=== PATIENT | male | born 1985 | race Caucasian/White ===

== ENCOUNTER 2020-12-15 16:52 | Inpatient (IN) ==
--- NOTE | 2020-12-15 17:54 | Emergency Department Note ---
History of Present Illness General Chief complaint: Illness Stated complaint: SEIZURE Time Seen by Provider: 12/15/20 17:41 History of Present Illness Maximum Pain Intensity: 0 35-year-old male presents to the ED from the [facility] by ambulance. The patient reportedly had a seizure that lasted for 2 or 3 minutes. The patient reportedly had a positive Covid test result 5 to 7 days ago. He does have a history of seizures. He states that his last one was a long time ago. He is currently taking Depakote. He denies any complaints at this time. He denies biting his tongue or having tongue pain. Denies any headaches. No chest pains or shortness of breath. Denies incontinence. Past Med/Surg History Social History Smoking Status: Never smoker Preferred Language: Portuguese Review of Systems A total of 10 systems reviewed and were otherwise negative Physical Exam Vital Signs Vital Signs - 24 hr 12/15/20 16:55 12/15/20 17:17 12/15/20 17:30 Temperature 36.5 C Temperature Source Oral Pulse Rate 102 H 100 H 98 H Pulse Rate from SpO2 Sensor 101 H 97 H Pulse Rhythm Regular Pulse Strength Normal Respiratory Rate 9 L 15 17 Respiratory Effort / Characteristics Non-Labored Spontaneous Respiratory Depth Normal Respiratory Pattern Regular Blood Pressure 111/71 111/71 115/78 Blood Pressure Mean 84 84 90 Blood Pressure Position Lying Pulse Oximetry 93 96 96 Oxygen Delivery Method Room Air Sepsis New/Unexplained Change in Mental Status N/A Sepsis Action Taken by Nursing No Action Required 12/15/20 17:50 12/15/20 18:00 12/15/20 18:30 Temperature Temperature Source Pulse Rate 102 H 94 H 88 Pulse Rate from SpO2 Sensor 93 H 87 Pulse Rhythm Regular Pulse Strength Respiratory Rate 9 L 20 16 Respiratory Effort / Characteristics Respiratory Depth Respiratory Pattern Blood Pressure 108/80 110/81 Blood Pressure Mean 89 90 Blood Pressure Position Pulse Oximetry 93 97 97 Oxygen Delivery Method Room Air Sepsis New/Unexplained Change in Mental Status Sepsis Action Taken by Nursing 12/15/20 19:00 12/15/20 19:30 12/15/20 20:00 Temperature Temperature Source Pulse Rate 91 H 92 H 91 H Pulse Rate from SpO2 Sensor 90 92 H 89 Pulse Rhythm Pulse Strength Respiratory Rate 14 16 14 Respiratory Effort / Characteristics Respiratory Depth Respiratory Pattern Blood Pressure 122/81 Blood Pressure Mean 94 Blood Pressure Position Pulse Oximetry 98 98 97 Oxygen Delivery Method Sepsis New/Unexplained Change in Mental Status Sepsis Action Taken by Nursing 12/15/20 20:30 Temperature Temperature Source Pulse Rate 89 Pulse Rate from SpO2 Sensor 90 Pulse Rhythm Pulse Strength Respiratory Rate 14 Respiratory Effort / Characteristics Respiratory Depth Respiratory Pattern Blood Pressure Blood Pressure Mean Blood Pressure Position Pulse Oximetry 97 Oxygen Delivery Method Sepsis New/Unexplained Change in Mental Status Sepsis Action Taken by Nursing CONSTITUTIONAL/VITAL SIGNS: Reviewed / noted above. GENERAL: Non-toxic in appearance. INTEGUMENTARY: Warm, dry, and [place]. HEAD: Normocephalic. EYES: without scleral icterus or trauma. ENT/OROPHARYNX: clear and moist. LYMPHADENOPATHY/NECK: Is supple without lymphadenopathy or meningismus. RESPIRATORY: Clear to auscultation bilaterally. No increased work of breathing. CARDIOVASCULAR: Regular rate and rhythm. GI/ABDOMEN: Soft and nontender. No organomegaly or pulsatile mass. EXTREMITIES: Warm and well perfused. BACK: No CVA tenderness. NEUROLOGICAL: Intact without focal deficits. PSYCHIATRIC: normal affect. MUSCULOSKELETAL: Normally developed with good muscle tone. TRIAGE NURSING DOCUMENTATION REVIEWED. Course Administered Medications Discontinued Medications Sodium Chloride (Nss) 500 mls @ 999 mls/hr IV .Q31M TRISTIAN Stop: 12/15/20 18:30 Last Infusion: 12/15/20 20:47 Dose: 0 mls/hr Documented by: [id number] Admin: 12/15/20 18:29 Dose: 999 mls/hr Documented by: [id number] Medical Decision Making Differential Diagnosis Differential includes acute coronary syndrome, myocardial infarction, CVA, TIA, anemia, infection, pneumonia, UTI, pyelonephritis, poor nutrition, dehydration, electrolyte disturbance,hypoglycemia. Medical Records Attestation: I reviewed the patient's medical records. Home Medications Current Medication List: was personally reviewed by me Laboratory Data Attestation: I reviewed the patient's lab results. Result diagrams: 12/15/20 18:35 12/15/20 18:35 Lab Results 12/15/20 12/15/20 12/15/20 Range/Units 18:35 18:35 18:35 WBC 8.73 (4.8-10.8) K/uL RBC 5.32 (4.7-6.1) M/uL Hgb 15.9 (14.0-18.0) g/dL Hct 45.6 (42-52) % MCV 85.7 (80-100) fL MCH 29.9 (25-34) pg MCHC 34.9 (32-36) g/dL RDW Std Deviation 44.6 (36.4-46.3) fL RDW Coeff of Jessica 14.3 (11.5-14.5) % Plt Count 368 (130-400) K/uL MPV 9.1 (7.4-10.4) fL Immature Gran % (Auto) 1.1 % Neut % (Auto) 73.4 % Lymph % (Auto) 16.0 % [place] % (Auto) 8.8 % Eos % (Auto) 0.6 % Baso % (Auto) 0.1 % Neut # (Auto) 6.40 (1.4-6.5) K/uL Lymph # (Auto) 1.40 (1.2-3.4) K/uL [place] # (Auto) 0.77 H (0.11-0.59) K/uL Eos # (Auto) 0.05 (0-0.5) K/uL Baso # (Auto) 0.01 (0-0.2) K/uL Immature Gran # (Auto) 0.10 H (0.00-0.02) K/uL Sodium 141 (136-145) mmol/L Potassium (3.5-5.1) mmol/L Chloride 111 H (98-107) mmol/L Carbon Dioxide 23 (21-32) mmol/L Anion Gap 7.0 (3-11) BUN 14 (7-18) mg/dl Creatinine 0.84 (0.6-1.4) mg/dl Est Cr Clr Drug Dosing 118.5 ml/min Est GFR ( Amer) 132.4 ml/min Est GFR (Non-Af Amer) 114.2 ml/min BUN/Creatinine Ratio 17.1 (10-20) Glucose 97 (70-99) mg/dl Calcium 9.4 (8.5-10.1) mg/dl Total Bilirubin 0.2 (0.2-1) mg/dl AST (15-37) U/L ALT 12 (12-78) U/L Alkaline Phosphatase 73 (45-117) U/L Total Creatine Kinase (39-308) U/L Total Protein 7.1 (6.4-8.2) gm/dl Albumin 3.3 L (3.4-5.0) gm/dl Globulin 3.8 (2.5-4.0) gm/dl Albumin/Globulin Ratio 0.9 (0.9-2) Valproic Acid 52 (50-100) mcg/ml Imaging Data Radiologist's Impression: Chest X-Ray 12/15/20 17:50 SINGLE VIEW CHEST CLINICAL HISTORY: Generalized weakness. FINDINGS: An AP, portable, upright chest radiograph is obtained. No prior studies are available for comparison at the time of dictation. The cardiomediastinal silhouette is unremarkable. The lungs and pleural spaces are clear. No pneumothorax is seen. The bony thorax is grossly intact. IMPRESSION: No active disease in the chest. ACT 112: Negative or not required by law. Electronically signed by: Reno Ga M.D. 12/15/2020 7:15 PM ECG Data Attestation: I personally reviewed and interpreted this ECG as follows: MDM Narrative Patient presents after a 2 to 3-minute tonic-clonic seizure that was reportedly witnessed by the patient's roommate at the [facility]. He was transported by ambulance. No EMS details were obtained by the nurse and the EMS was gone by the time I saw the patient. The patient denies any specific complaints. Does admit to having a seizure disorder but the last one was many years ago. He does take Depakote. He states that he has been taking his medications as prescribed. The patient CBC and chemistry panel was unremarkable. Chest x-ray did not show acute process. Depakote level was therapeutic. The patient was told the results of the test. He was given some IV fluids here. He is felt to be stable for discharge. He is seizure could be related to a breakthrough seizure related to recently having Covid. Impression & Plan Seizure Discharge Plan Visit Data Chief Complaint: Illness Stated Complaint: SEIZURE ED Provider: Dany Burden Discharge Problem: Seizure Patient Disposition: Home - Self-Care Discharge Instructions Activity Restrictions/Additional Instructions: Your Depakote level today was therapeutic. Your blood work otherwise looked normal. You likely had a breakthrough seizure related to your recent positive Covid diagnosis. Continue your medication as prescribed. Follow-up with your neurologist. Follow-up with your doctor for further care and evaluation in 1 week if symptoms persist. Return to the emergency department for worsening or new symptoms or any concerns. You have been examined and treated today on an emergency basis only. This is not a substitute for, or an effort to provide, complete comprehensive medical care. It is impossible to recognize and treat all injuries or illnesses in a single emergency department visit. It is therefore important that you follow up closely with your doctor. Call as soon as possible for an appointment. Forms Stand Alone Forms: [facility], [facility] Emergency Department, [facility] Visit Information Referrals Referrals: PCP,NO [Physician] -
[2020-12-15] MEDS ORDERED: SODIUM CHLORIDE 0.9% 500 ML IV SCH (18:00)
[2020-12-15 18:42] LABS: Basophils # (auto) 0.01 K/uL (0-0.2); Basophils % (auto) 0.1 %; Eosinophils # (auto) 0.05 K/uL (0-0.5); Eosinophils % (auto) 0.6 %; Hematocrit (blood only) 45.6 % (42-52); Hemoglobin 15.9 g/dL (14.0-18.0); Immature Granulocytes % (auto) 1.1 %; Mean Corpuscular Hemoglobin 29.9 pg (25-34); Mean Corpuscular Hgb Conc 34.9 g/dL (32-36); Mean Corpuscular Volume 85.7 fL (80-100); Mean Platelet Volume 9.1 fL (7.4-10.4); Monocytes # (auto) 0.77 K/uL (0.11-0.59); Monocytes % (auto) 8.8 %; Neutrophils % (auto) 73.4 %; Platelet Count 368 K/uL (130-400); RDW Coefficient of Variation 14.3 % (11.5-14.5); RDW Standard Deviation 44.6 fL (36.4-46.3); Red Blood Count 5.32 M/uL (4.7-6.1); White Blood Count 8.73 K/uL (4.8-10.8)
--- NOTE | 2020-12-15 19:16 | XRay Report ---
SINGLE VIEW CHEST CLINICAL HISTORY: Generalized weakness. FINDINGS: An AP, portable, upright chest radiograph is obtained. No prior studies are available for c omparison at the time of dictation. The cardiomediastinal silhouette is unremarkable. The lungs and pleural spaces are clear. No pneumothorax is seen. The bony thorax is grossly intact. IMPRESSION: No active disease in the chest. ACT 112: Negative or not required by law. Electronically signed by: Reno Ga M.D. 12/15/2020 7:15 PM
[2020-12-15 19:18] LABS: Albumin Globulin Ratio 0.9 (0.9-2); Albumin Level 3.3 gm/dl (3.4-5.0); BUN Creatinine Ratio 17.1 (10-20); Bilirubin,Total 0.2 mg/dl (0.2-1); Calcium 9.4 mg/dl (8.5-10.1); Creatinine Clr Calc Pharmacy 118.5 ml/min; Est GFR (African American) 132.4 ml/min; Est GFR (Non-African American) 114.2 ml/min; Globulin 3.8 gm/dl (2.5-4.0); Total Protein 7.1 gm/dl (6.4-8.2)
[2020-12-15] MEDS ORDERED: levETIRAcetam 1,000 MG in 0.9 % SODIUM CHLORIDE 100 ML IV STA (22:21)
[2020-12-15] MEDS ORDERED: LORazepam 1 MG/2 ML VIAL IV PRN (22:40)
[2020-12-15 23:05] LABS: Partial Thromboplastin Time 25.9 Seconds (21.0-31.0)
--- NOTE | 2020-12-16 00:19 | History & Physical Report ---
Date of Service December 16, 2020 Assessment & Plan (1) Acute hypoxemic respiratory failure: Plan: Noted after second breakthrough seizure last night COVID-19 illness, unable to obtain account of symptoms from patient at time of encounter schizophrenia/mood disorder, patient currently admitted at [facility] hypertension, stable, currently not on maintenance medications ongoing tobacco abuse Medical telemetry Supplemental O2 Baseline ABG Supportive measures for COVID-19 illness for now until ABG results noted Seizure precautions, Ativan as needed Continue AED regimen from [facility] Hold Haldol for now. Retrieve outpatient [facility] Neurology records (Dr. Rivera, contact #[phone]) Neurology consult Re: Breakthrough seizures Nicotine patch as needed DVT prophylaxis per Lovenox subcu Full code Patient guardian requesting update from providers. Mr. Caleb Hernandes, contact #[phone]. Text document was generated using [employer] voice recognition software. It may contain grammatical or spelling errors. Kindly contact undersigned for clarification of any documentation item in question. History of Present Illness Chief Complaint: Seizures Primary Care Provider: JENNIFER Man History obtained from patient, family, and records. Limited history from patient secondary to confusion. Medical history significant for schizophrenia, mood disorder, seizure disorder, hypertension, ongoing tobacco abuse. Patient has been admitted at the [facility] for schizophrenia/mood disorder since November 29, 2020. [facility] to fix patient's seizure medication regimen because outpatient providers from [place] 'messed up' patient's meds leading to a breakthrough seizure 3 months ago after years of good control as per patient's guardian. 2 more weeks of stay contemplated at the [facility] as per guardian. Last week, patient noted to have a positive Covid test 19. Patient unable to provide account of symptoms of illness. Witnessed generalized tonic-clonic seizures about 2 to 3 minutes at psychiatric facility last night. Patient brought to the ER for evaluation. Patient about to be discharged back to psychiatric facility when he had another breakthrough seizure lasting about 2 minutes.. Subsequent hypoxemia noted. IV Keppra administered at the ER. Patient 'does not know' if he has headache, chest pain, S OB, cough, abdominal pain symptoms. Medical History as above Surgical History : Could not be obtained Family History : Could not be obtained Personal/Social history : Ongoing tobacco abuse, no EtOH intake, lives with his guardian in [place] Allergies Allergy/AdvReac Type Severity Reaction Status Date / Time No Known Allergies Allergy Unverified 12/15/20 23:08 Home Medications Medication Instructions Recorded Confirmed Type Haloperidol 2.5 Mg 7.5 mg PO HS 12/15/20 History acetaminophen 325 mg tablet 650 mg PO Q4 PRN 12/15/20 12/15/20 History (Tylenol) clozapine 100 mg tablet 200 mg PO HS 12/15/20 12/15/20 History clozapine 25 mg tablet 150 mg PO QAM 12/15/20 12/15/20 History divalproex 250 mg tablet,delayed 250 mg PO QAM 12/15/20 12/15/20 History release (Depakote) divalproex 500 mg tablet,delayed 500 mg PO HS 12/15/20 12/15/20 History release (Depakote) docusate sodium 100 mg tablet 100 mg PO DAILY 12/15/20 12/15/20 History doxepin 25 mg capsule 25 mg PO HS 12/15/20 12/15/20 History haloperidol 5 mg tablet 10 mg PO Q6 PRN 12/15/20 12/15/20 History hydroxyzine pamoate 25 mg capsule 25 mg PO TID 12/15/20 12/15/20 History lorazepam 1 mg tablet (Ativan) 1 mg PO Q6 PRN 12/15/20 12/15/20 History magnesium hydroxide 400 mg/5 mL 30 ml PO DAILY PRN 12/15/20 12/15/20 History oral suspension (Milk of Magnesia) zonisamide 100 mg capsule 500 mg PO HS 12/15/20 12/15/20 History Past Med/Surg History Social History Smoking Status: Unknown if ever smoked Hx Alcohol Use: No Hx Substance Use: No Preferred Language: Iraqi Communication Ability: Effective Beliefs That Will Affect Care: None Current Living Situation: Other Current Living Situation Comment: Friend Feels Safe at Home: Yes Safety Concerns: Feels Safe At This Time Assistive Devices: None Review of Systems Review of Systems: Could not be reliably obtained Physical Exam Physical Exam: GENERAL: Comfortable, wane, lethargic, no respiratory distress SKIN: Normal color, warm HEENT: [place] palpebral conjunctivae, no ptosis, dry buccal mucosa, O2 mask in place NECK : Supple, no tenderness CHEST : Decreased breath sounds, no tenderness HEART : RRR, no obvious murmurs ABDOMEN: Some distention, nontender EXTREMITIES : No LE swelling/tenderness, no other conspicuous deformities noted NEUROLOGIC : Lethargic, no facial asymmetry, no other gross focality Results & Data Results & Data ([facility]) Vital Signs (Past 12 Hours) Vital Signs Temp Pulse Resp BP BP Pulse Ox 12/15/20 23:00 101 H 14 121/80 91 12/15/20 22:30 109 H 20 90 12/15/20 22:00 97 12/15/20 21:30 98 12/15/20 21:08 37 C 87 H 117/85 98 12/15/20 21:00 89 14 97 12/15/20 20:30 89 14 97 12/15/20 20:00 91 H 14 97 12/15/20 19:30 92 H 16 122/81 98 12/15/20 19:00 91 H 14 98 12/15/20 18:30 88 16 110/81 97 12/15/20 18:00 94 H 20 108/80 97 12/15/20 17:50 102 H 9 L 93 12/15/20 17:30 98 H 17 115/78 96 12/15/20 17:17 100 H 15 111/71 96 12/15/20 16:55 36.5 C 102 H 9 L 111/71 93 Laboratory Results Laboratory Results WBC 8.73 K/uL (4.8-10.8) 12/15/20 18:35 RBC 5.32 M/uL (4.7-6.1) 12/15/20 18:35 Hgb 15.9 g/dL (14.0-18.0) 12/15/20 18:35 Hct 45.6 % (42-52) 12/15/20 18:35 MCV 85.7 fL (80-100) 12/15/20 18:35 MCH 29.9 pg (25-34) 12/15/20 18:35 MCHC 34.9 g/dL (32-36) 12/15/20 18:35 RDW Std Deviation 44.6 fL (36.4-46.3) 12/15/20 18:35 RDW Coeff of Jessica 14.3 % (11.5-14.5) 12/15/20 18:35 Plt Count 368 K/uL (130-400) 12/15/20 18:35 MPV 9.1 fL (7.4-10.4) 12/15/20 18:35 Immature Gran % (Auto) 1.1 % 12/15/20 18:35 Neut % (Auto) 73.4 % 12/15/20 18:35 Lymph % (Auto) 16.0 % 12/15/20 18:35 [place] % (Auto) 8.8 % 12/15/20 18:35 Eos % (Auto) 0.6 % 12/15/20 18:35 Baso % (Auto) 0.1 % 12/15/20 18:35 Neut # (Auto) 6.40 K/uL (1.4-6.5) 12/15/20 18:35 Lymph # (Auto) 1.40 K/uL (1.2-3.4) 12/15/20 18:35 [place] # (Auto) 0.77 K/uL (0.11-0.59) H 12/15/20 18:35 Eos # (Auto) 0.05 K/uL (0-0.5) 12/15/20 18:35 Baso # (Auto) 0.01 K/uL (0-0.2) 12/15/20 18:35 Immature Gran # (Auto) 0.10 K/uL (0.00-0.02) H 12/15/20 18:35 APTT 25.9 Seconds (21.0-31.0) 12/15/20 18:36 PTT Ratio 1.0 12/15/20 18:36 Sodium 141 mmol/L (136-145) 12/15/20 18:35 Potassium mmol/L (3.5-5.1) 12/15/20 18:35 Chloride 111 mmol/L (98-107) H 12/15/20 18:35 Carbon Dioxide 23 mmol/L (21-32) 12/15/20 18:35 Anion Gap 7.0 (3-11) 12/15/20 18:35 BUN 14 mg/dl (7-18) 12/15/20 18:35 Creatinine 0.84 mg/dl (0.6-1.4) 12/15/20 18:35 Est Cr Clr Drug Dosing 118.5 ml/min 12/15/20 18:35 Est GFR ( Amer) 132.4 ml/min 12/15/20 18:35 Est GFR (Non-Af Amer) 114.2 ml/min 12/15/20 18:35 BUN/Creatinine Ratio 17.1 (10-20) 12/15/20 18:35 Glucose 97 mg/dl (70-99) 12/15/20 18:35 Calcium 9.4 mg/dl (8.5-10.1) 12/15/20 18:35 Total Bilirubin 0.2 mg/dl (0.2-1) 12/15/20 18:35 AST U/L (15-37) 12/15/20 18:35 ALT 12 U/L (12-78) 12/15/20 18:35 Alkaline Phosphatase 73 U/L (45-117) 12/15/20 18:35 Total Creatine Kinase U/L (39-308) 12/15/20 18:35 Total Protein 7.1 gm/dl (6.4-8.2) 12/15/20 18:35 Albumin 3.3 gm/dl (3.4-5.0) L 12/15/20 18:35 Globulin 3.8 gm/dl (2.5-4.0) 12/15/20 18:35 Albumin/Globulin Ratio 0.9 (0.9-2) 12/15/20 18:35 Valproic Acid 52 mcg/ml (50-100) 12/15/20 18:35 COVID-19 Eval Order Covid19 at [facility] 12/15/20 22:51 Diagnostic Findings Chest x-ray as per my interpretation atelectasis EKG as per my interpretation : Rate 105, sinus nocardia, normal axis, diffuse T wave flattening
[2020-12-16 00:24] LABS: Base Excess ABG -1.4 mEq/L (-9-1.8); HCO3 ABG 22 mmol/L (19-24); Oxygen Saturation ABG 99.7 % (90-95); PCO2 ABG 35 mmHg (35-46); PO2 ABG 257 mmHg (80-95); pH ABG 7.42 (7.35-7.45)
[2020-12-16 00:27] LABS: Allen Test Pos (Pos)
[2020-12-16 00:37] LABS: Potassium 3.9 mmol/L (3.5-5.1)
[2020-12-16 00:49] LABS: Troponin I < 0.015 ng/ml (0-0.045)
[2020-12-16] MEDS ORDERED: ZONISAMIDE 100 MG CAPSULE PO STA (01:17)
[2020-12-16] MEDS ORDERED: LACTATED RINGER'S 1,000 ML IV STA (02:14)
[2020-12-16] MEDS ORDERED: LEVALBUTEROL TARTRATE 15 GM HFA.AER.AD INH PRN (02:21)
[2020-12-16] MEDS ORDERED: ACETAMINOPHEN 325 MG TAB PO PRN ×2 (02:21)
[2020-12-16] MEDS ORDERED: FLUARIX QUADRIVALENT 0.5 ML SYR IM ONE (02:40)
[2020-12-16 06:35] LABS: Basophils # (auto) 0.01 K/uL (0-0.2); Basophils % (auto) 0.1 %; Eosinophils # (auto) 0.08 K/uL (0-0.5); Eosinophils % (auto) 1.1 %; Hematocrit (blood only) 42.2 % (42-52); Hemoglobin 14.7 g/dL (14.0-18.0); Immature Granulocytes # (auto) 0.07 K/uL (0.00-0.02); Immature Granulocytes % (auto) 0.9 %; Lymphocytes # (auto) 2.17 K/uL (1.2-3.4); Lymphocytes % (auto) 29.2 %; Mean Corpuscular Hemoglobin 29.6 pg (25-34); Mean Corpuscular Hgb Conc 34.8 g/dL (32-36); Mean Corpuscular Volume 84.9 fL (80-100); Mean Platelet Volume 9.1 fL (7.4-10.4); Monocytes # (auto) 0.96 K/uL (0.11-0.59); Monocytes % (auto) 12.9 %; Neutrophils # (auto) 4.15 K/uL (1.4-6.5); Neutrophils % (auto) 55.8 %; Platelet Count 392 K/uL (130-400); RDW Coefficient of Variation 14.3 % (11.5-14.5); RDW Standard Deviation 44.7 fL (36.4-46.3); Red Blood Count 4.97 M/uL (4.7-6.1); White Blood Count 7.44 K/uL (4.8-10.8)
--- NOTE | 2020-12-16 06:36 | CT Scan Report ---
CT head/brain wo con CLINICAL HISTORY: 35 years-old Male with sz. Acute seizure like activity TECHNIQUE: Multiple axial CT images of the head were obtained without contrast. A dose lowering tech nique was utilized adhering to the principles of ALARA. CT DOSE: 614.27 mGy.cm COMPARISON: None. FINDINGS: No acute intracranial hemorrhage, midline shift, intracranial mass, hydrocephalus, territorial ischem ia or abnormal extra-axial collection. The calvarium is intact. Mastoid air cells are clear. Minimal mucosal thickening the right frontal a nd maxillary sinuses. IMPRESSION: No acute intracranial abnormality. ACT 112: Negative or not required by law. The above report was generated using voice recognition software. It may contain grammatical, syntax o r spelling errors. Electronically signed by: Kamari Jarrett M.D. 12/16/2020 6:34 AM
[2020-12-16 06:54] LABS: BUN Creatinine Ratio 16.4 (10-20); Creatinine Clr Calc Pharmacy 132.7 ml/min; Est GFR (African American) 135.8 ml/min; Est GFR (Non-African American) 117.2 ml/min; Potassium 3.8 mmol/L (3.5-5.1)
[2020-12-16 06:57] LABS: Albumin Globulin Ratio 0.8 (0.9-2); Bilirubin,Total 0.4 mg/dl (0.2-1); Globulin 3.6 gm/dl (2.5-4.0); Total Protein 6.6 gm/dl (6.4-8.2)
--- NOTE | 2020-12-16 07:43 | XRay Report ---
XR chest 1V portable HISTORY: Hypoxia. Seizure. COMPARISON: Chest 12/15/2020. FINDINGS: No pneumothorax. No pleural effusions. The heart is normal in size. There are low lung volu mes. Left basilar linear densities are noted. The right lung is clear. No evidence for pulmonary juanita a. IMPRESSION: A few left basilar linear densities which favor subsegmental atelectasis. A pneumonia could also have a similar appearance in the appropriate clinical setting. ACT 112: Negative or not required by law. Electronically signed by: Ivan Mccartney M.D. 12/16/2020 7:42 AM
[2020-12-16] MEDS ORDERED: DIVALPROEX DELAY RELEASE 250 MG TABEC PO SCH (09:00)
[2020-12-16] MEDS: DIVALPROEX DELAY RELEASE 500 MG TAB PO SCH ×2 (11:07→20:21)
[2020-12-16] MEDS: ENOXAPARIN INJ 30 MG/0.3 ML SYR SQ SCH (11:07)
--- NOTE | 2020-12-16 14:09 | Electrocardiogram Report ---
Test Reason : Blood Pressure : / mmHG Vent. Rate : 101 BPM Atrial Rate : 101 BPM P-R Int : 120 ms QRS Dur : 072 ms QT Int : 334 ms P-R-T Axes : 012 052 062 degrees QTc Int : 433 ms Sinus tachycardia Nonspecific T wave abnormality Abnormal ECG No previous ECGs available Confirmed by Grayson Khan ([id number]) on 12/16/2020 2:09:31 PM Referred By: Karo Wood Confirmed By:Grayson Khan
--- NOTE | 2020-12-16 15:39 | Hospitalist Progress Note ---
Date of Service December 16, 2020 Assessment & Plan (1) Acute hypoxemic respiratory failure: Plan: Breakthrough Seizure H/O seizure disorder CT Head:No acute intracranial abnormality Continue Zonisamide Increased Depakote to 500MG BID Continue Seizure precautions Appreciate Neurology Input Follow with [facility] Neurology records (Dr. Rivera) as outpatient COVID-19 illness Transient Hypoxia in setting of breakthrough seizure CXR:A few left basilar linear densities which favor subsegmental atelectasis. A pneumonia could also have a similar appearance in the appropriate clinical setting. 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 DVT Px: Lovenox SQ Code Status Full code Admission and Anticipated Discharge Date Admission Date: December 16, 2020 Subjective Patient is seen and examined bedside States having headache and feels drowsy Also reported mild abdominal discomfort Denies any chest pain, shortness of breath, dizziness, nausea Review of Systems Review of Systems: All systems reviewed & are unremarkable except as noted in Subjective Physical Exam Physical Exam: Physical Exam: Vitals signs as noted above General Appearance:Thin, frail, no apparent distress Head: normocephalic, Atraumatic Eyes: normal inspection, EOMI Neck: supple, Trachea midline Respiratory/Chest: Normal breath sounds, CTA Cardiovascular: S1, S2, No murmur Abdomen/GI:Soft, Non tender, Bowel sounds present Extremities/Musculoskeletal:normal inspection, no edema Neurologic/Psych:Alert, awake, grossly no focal neurological deficits Skin: normal color, warm Results & Data Results & Data ([facility]) Vital Signs (Past 12 Hours) Vital Signs Temp Pulse Resp BP BP Pulse Ox 12/16/20 11:14 36.9 C 93 H 18 105/67 100 12/16/20 06:50 36.5 C 84 20 123/75 98 12/16/20 04:05 36.8 C 91 H 17 105/68 95 Laboratory Results Short CBC 12/15/20 12/16/20 Range/Units 18:35 05:54 WBC 8.73 7.44 (4.8-10.8) K/uL Hgb 15.9 14.7 (14.0-18.0) g/dL Hct 45.6 42.2 (42-52) % Plt Count 368 392 (130-400) K/uL BMP 12/15/20 12/16/20 12/16/20 18:35 00:10 05:54 Sodium 141 141 Potassium 3.9 3.8 Chloride 111 H 110 H Carbon Dioxide 23 25 BUN 14 13 Creatinine 0.84 0.79 Glucose 97 97 Calcium 9.4 9.0 Cardiac Enzymes 12/15/20 12/16/20 Range/Units 18:35 00:10 Total Creatine Kinase (39-308) U/L Troponin I < 0.015 (0-0.045) ng/ml Liver Function 12/15/20 12/16/20 Range/Units 18:35 05:54 Total Bilirubin 0.2 0.4 (0.2-1) mg/dl AST 4 L (15-37) U/L ALT 12 11 L (12-78) U/L Alkaline Phosphatase 73 67 (45-117) U/L Albumin 3.3 L 3.0 L (3.4-5.0) gm/dl
--- NOTE | 2020-12-16 16:18 | Electroencephalogram ---
EEG Procedure Note Date of Service December 16, 2020 Start / End Times Start Time: 1217 End Time: 1237 Referring Physician Jeovany Mendez MD History Breakthrough seizure x2 with history of seizures in the past currently managed with Depakote and Zonegran but with marginal Depakote level of 51 Home Medication List Medication Instructions Recorded Confirmed Type Haloperidol 2.5 Mg 7.5 mg PO HS 12/15/20 History acetaminophen 325 mg tablet 650 mg PO Q4 PRN 12/15/20 12/15/20 History (Tylenol) clozapine 100 mg tablet 200 mg PO HS 12/15/20 12/15/20 History clozapine 25 mg tablet 150 mg PO QAM 12/15/20 12/15/20 History divalproex 250 mg tablet,delayed 250 mg PO QAM 12/15/20 12/15/20 History release (Depakote) divalproex 500 mg tablet,delayed 500 mg PO HS 12/15/20 12/15/20 History release (Depakote) docusate sodium 100 mg tablet 100 mg PO DAILY 12/15/20 12/15/20 History doxepin 25 mg capsule 25 mg PO HS 12/15/20 12/15/20 History haloperidol 5 mg tablet 10 mg PO Q6 PRN 12/15/20 12/15/20 History hydroxyzine pamoate 25 mg capsule 25 mg PO TID 12/15/20 12/15/20 History lorazepam 1 mg tablet (Ativan) 1 mg PO Q6 PRN 12/15/20 12/15/20 History magnesium hydroxide 400 mg/5 mL 30 ml PO DAILY PRN 12/15/20 12/15/20 History oral suspension (Milk of Magnesia) zonisamide 100 mg capsule 500 mg PO HS 12/15/20 12/15/20 History Inpatient Medication List Divalproex Sodium (Divalproex Delay Release 500 Mg Tab) 500 mg PO BID [facility] Stop: 01/15/21 09:29 Last Admin: 12/16/20 11:07 Dose: 500 mg Documented by: [id number] Enoxaparin Sodium (Enoxaparin Inj 30 Mg/0.3 Ml Syr) 30 mg SQ QAM [facility] Stop: 01/15/21 08:59 Last Admin: 12/16/20 11:07 Dose: 30 mg Documented by: [id number] Discontinued Medications Divalproex Sodium (Divalproex Delay Release 250 Mg Tabec) 250 mg PO QAM [facility] Stop: 01/15/21 08:59 Last Admin: 12/16/20 09:29 Dose: Not Given Documented by: [id number] Sodium Chloride (Nss) 500 mls @ 999 mls/hr IV .Q31M [facility] Stop: 12/15/20 18:30 Last Infusion: 12/15/20 20:47 Dose: 0 mls/hr Documented by: [id number] Admin: 12/15/20 18:29 Dose: 999 mls/hr Documented by: [id number] Levetiracetam 1,000 mg/ Sodium (Chloride) 110 mls @ 440 mls/hr IV NOW [facility] Stop: 12/15/20 22:35 Last Infusion: 12/16/20 01:06 Dose: 0 mls/hr Documented by: [id number] Admin: 12/15/20 23:00 Dose: 440 mls/hr Documented by: [id number] Lactated Ringer's (Lr) 1,000 mls @ 80 mls/hr IV .[id number] [facility] Stop: 12/16/20 14:43 Last Infusion: 12/16/20 15:39 Dose: 0 mls/hr Documented by: [id number] Admin: 12/16/20 02:57 Dose: 80 mls/hr Documented by: [id number] Non-Formulary Medication (Zonisamide) 500 mg PO HS [facility] Stop: 01/15/21 00:24 Last Admin: 12/16/20 02:35 Dose: Not Given Documented by: [id number] Zonisamide (Zonisamide 100 Mg Capsule) 500 mg PO ONE [facility] Stop: 12/16/20 01:18 Last Admin: 12/16/20 02:52 Dose: 500 mg Documented by: [id number] Description This is a 21 electrode EEG with a single channel dedicated to limited EKG. The electrodes were placed in accordance with the International 10-20 system. This EEG was done as a bedside recording but was of only 20 minutes duration and a lot of the recording was hampered by muscle and movement artifacts and agitation but several minutes of the recording were interpretable and revealed evidence for a background rhythm in the alpha range of about 9 Hz maximum frequency, a slightly increased amount of slower frequency theta activity over the central regions but in a symmetrical fashion and a normal amount of alpha rhythm bifrontally. Photic stimulation could not be performed in drowsiness and light sleep were not seen No ongoing or potentially epileptogenic patterns were noted Interpretation Limited EEG but demonstrating at most evidence for mild nonspecific encephalopathy characterized by slightly increased amounts of slower activity but with preservation of the normal background alpha rhythm and revealing no evidence for potentially epileptogenic discharges or ongoing nonconvulsive status epilepticus Clinical Correlation See above nonspecific mild generalized slowing possibly post ictal without evidence for ongoing potentially epileptogenic or nonconvulsive seizure activity and without evidence for lateralizing features Jeovany Mendez MD
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
--- NOTE | 2020-12-16 16:50 | Communication Note ---
Date of Service: December 16, 2020 35 yo male with psychosis, CoVID +, seizure disorder--admit medically on transfer from the [facility]. Awaiting additional records. Liaison reports patient was not yet able to engage with our team. Ammonia level is mildly elevated. Will need to confirm dosing (?recent titration) of Clozaril given seizure risk with this compared to other antipsychotics. Please hold for excessive sedation or difficulty swallowing. Full consult to be completed within 24 hrs.
[2020-12-16] MEDS: PROMETHAZINE HCL 6.25 MG in SODIUM CHLORIDE 0.9% 50 ML IV PRN (17:31)
[2020-12-16] MEDS: haloperidoL 5 MG TAB PO PRN (17:55)
[2020-12-16] MEDS: cloZAPine 100 MG TAB PO SCH (20:21)
[2020-12-16] MEDS ORDERED: DIVALPROEX DELAY RELEASE 500 MG TAB PO SCH (21:00)
[2020-12-16] MEDS: ZONISAMIDE 100 MG CAPSULE PO SCH (21:10)
[2020-12-16] MEDS: LORazepam 1 MG TAB PO PRN (21:10)
[2020-12-17] MEDS: ENOXAPARIN INJ 30 MG/0.3 ML SYR SQ SCH (08:49)
[2020-12-17] MEDS: DIVALPROEX DELAY RELEASE 500 MG TAB PO SCH ×2 (08:49→21:33)
[2020-12-17 08:52] LABS: Hematocrit (blood only) 45.3 % (42-52); Hemoglobin 15.7 g/dL (14.0-18.0); Mean Corpuscular Hemoglobin 29.3 pg (25-34); Mean Corpuscular Hgb Conc 34.7 g/dL (32-36); Mean Corpuscular Volume 84.7 fL (80-100); Mean Platelet Volume 9.4 fL (7.4-10.4); Platelet Count 392 K/uL (130-400); RDW Coefficient of Variation 14.4 % (11.5-14.5); RDW Standard Deviation 44.6 fL (36.4-46.3); Red Blood Count 5.35 M/uL (4.7-6.1); White Blood Count 5.99 K/uL (4.8-10.8)
[2020-12-17 09:13] LABS: BUN Creatinine Ratio 11.5 (10-20); Calcium 9.5 mg/dl (8.5-10.1); Creatinine Clr Calc Pharmacy 109.6 ml/min; Est GFR (Non-African American) 102.7 ml/min; Magnesium 2.5 mg/dl (1.8-2.4); Potassium 3.9 mmol/L (3.5-5.1)
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
[2020-12-17] MEDS ORDERED: SODIUM CHLORIDE 0.9% 1000ML 1,000 ML IV ONE (10:04)
[2020-12-17] MEDS: LORazepam 1 MG TAB PO PRN ×2 (12:48→21:34)
[2020-12-17] MEDS: haloperidoL 5 MG TAB PO PRN (12:49)
[2020-12-17] MEDS ORDERED: BENZTROPINE MESYLATE 1 MG TAB PO PRN (14:24)
--- NOTE | 2020-12-17 15:04 | Communication Note ---
Date of Service: December 17, 2020 I have reviewed Hiram's laboratory studies and note that he has a mild elevation of the ammonia which may or may not reflect his Depakote and probably needs followed periodically. Without knowing his prior neurologic history I cannot state that this is not a chronic problem but it has nothing to do with his mental status is a titer is low Is repeat Depakote level is now in the therapeutic range at 67 and I would simply continue 500 mg twice a day along with his Zonegran at 500 mg a day and depending on how he is doing psychiatrically I think he probably could be transferred back to the [facility] but this is going to be totally up to the psychiatry service If [facility] he probably ought to have his Depakote level and ammonia level drawn on a weekly basis His neurologic care should be seen by the neurologist in the [place] area who has been providing it but again the identity of this individual has not been revealed Right now neurology is going to sign off but will be willing to reassess him should things change in the future Jeovany Mendez MD
[2020-12-17] MEDS: haloperidoL 5 MG TAB PO SCH ×2 (15:47→21:34)
--- NOTE | 2020-12-17 19:06 | Hospitalist Progress Note ---
Date of Service December 17, 2020 Assessment & Plan (1) Acute hypoxemic respiratory failure: Plan: Breakthrough Seizure H/O seizure disorder CT Head:No acute intracranial abnormality Continue Zonisamide Increased Depakote to 500MG BID Continue Seizure precautions Appreciate Neurology Input Follow with [facility] Neurology records (Dr. Rivera) as outpatient Needs Depakote level and ammonia level drawn on a weekly basis upon discharge as per Neurology COVID-19 illness Transient Hypoxia in setting of breakthrough seizure CXR:A few left basilar linear densities which favor subsegmental atelectasis. A pneumonia could also have a similar appearance in the appropriate clinical setting. Currently saturating well on room air Currently does not require treatment for Covid infection Denies cough, shortness of breath Schizophrenia/mood disorder Presented from [facility] Appreciate Psychiatry Input Reports suicidal, homicidal thoughts Sitter at bedside Suicidal precautions Started on haloperidol as per Psych Hypertension BP relatively low Currently not on meds Monitor Ongoing tobacco abuse Hat Blocker to quit smoking DVT Px: Lovenox SQ Code Status Full code Admission and Anticipated Discharge Date Admission Date: December 16, 2020 Subjective Patient is seen and examined bedside States having hallucinations Also reports suicidal and homicidal thoughts Abdominal discomfort resolved Denies any chest pain, shortness of breath, dizziness, nausea Review of Systems Review of Systems: All systems reviewed & are unremarkable except as noted in Subjective Physical Exam Physical Exam: Physical Exam: Vitals signs as noted above General Appearance:Thin, frail, no apparent distress Head: normocephalic, Atraumatic Eyes: normal inspection, EOMI Neck: supple, Trachea midline Respiratory/Chest: Normal breath sounds, CTA Cardiovascular: S1, S2, No murmur Abdomen/GI:Soft, Non tender, Bowel sounds present Extremities/Musculoskeletal:normal inspection, no edema Neurologic/Psych:Alert, awake, grossly no focal neurological deficits Skin: normal color, warm Results & Data Results & Data ([facility] Vital Signs (Past 12 Hours) Vital Signs Temp Pulse Pulse Resp BP Pulse Ox 12/17/20 18:00 123 H 12/17/20 15:17 36.5 C 106 H 19 131/87 99 12/17/20 11:57 36.5 C 93 H 18 110/69 100 12/17/20 08:05 36.5 C 73 20 90/60 L 99 Laboratory Results Short CBC 12/17/20 Range/Units 07:30 WBC 5.99 (4.8-10.8) K/uL Hgb 15.7 (14.0-18.0) g/dL Hct 45.3 (42-52) % Plt Count 392 (130-400) K/uL [facility] 12/17/20 07:30 Sodium 144 Potassium 3.9 Chloride 112 H Carbon Dioxide 24 BUN 11 Creatinine 0.96 Glucose 76 Calcium 9.5
[2020-12-17] MEDS: ZONISAMIDE 100 MG CAPSULE PO SCH (21:32)
[2020-12-17] MEDS: cloZAPine 100 MG TAB PO SCH (21:33)
[2020-12-18] MEDS: haloperidoL 5 MG TAB PO SCH ×2 (09:29→20:23)
[2020-12-18] MEDS: ENOXAPARIN INJ 30 MG/0.3 ML SYR SQ SCH (09:29)
[2020-12-18] MEDS: DIVALPROEX DELAY RELEASE 500 MG TAB PO SCH ×2 (09:30→20:24)
[2020-12-18 09:50] LABS: Hematocrit (blood only) 43.5 % (42-52); Mean Corpuscular Hemoglobin 29.8 pg (25-34); Mean Corpuscular Hgb Conc 34.5 g/dL (32-36); Mean Corpuscular Volume 86.3 fL (80-100); Mean Platelet Volume 9.1 fL (7.4-10.4); Platelet Count 351 K/uL (130-400); RDW Coefficient of Variation 14.6 % (11.5-14.5); RDW Standard Deviation 45.7 fL (36.4-46.3); Red Blood Count 5.04 M/uL (4.7-6.1); White Blood Count 5.88 K/uL (4.8-10.8)
[2020-12-18 10:12] LABS: Creatinine Clr Calc Pharmacy 123.1 ml/min; Est GFR (African American) 131.1 ml/min; Est GFR (Non-African American) 113.1 ml/min; Potassium 3.7 mmol/L (3.5-5.1)
--- NOTE | 2020-12-18 12:42 | Electrocardiogram Report ---
Test Reason : Blood Pressure : / mmHG Vent. Rate : 092 BPM Atrial Rate : 092 BPM P-R Int : 128 ms QRS Dur : 076 ms QT Int : 364 ms P-R-T Axes : 046 091 066 degrees QTc Int : 450 ms Normal sinus rhythm Rightward axis Nonspecific T wave abnormality Abnormal ECG When compared with ECG of 15-DEC-2020 17:08, No significant change was found Confirmed by Grayson Khan ([id number]) on 12/18/2020 12:42:19 PM Referred By: Karo Wood Confirmed By:Grayson Khan
--- NOTE | 2020-12-18 13:34 | Psychiatric Progress Note ---
Date of Service December 18, 2020 Impression / Recommendations Impression 35 yo male with chronic psychosis admit COVID + after a seizure at the [facility]. Past med trials largely unavaialable, hx of Invega, some response to prn Haldol. (1) Schizophrenia: (2) Acute hypoxemic respiratory failure: (3) Seizure: 12/18/20: reviewed records from [facility], was receiving higher total daily dose of clozapine there (including am dose). Continue current Haldol and Clozaril doses as written as Haldol effective and desirable to minimize clozaril dose due to acute seizures. Patient to return to [facility] to complete goals of inpatient hospitalization when medically cleared. Patient will remain a voluntary. Can d/c 1-on-1 today as denies SI and no CAH. 12/17/20: staff instructed re: 1-on-1 and that is symptoms worsen to place on safety tray will add standing order for Haldol and give 2 additional doses of 5 mg today (now and hx) Cogentin prn EPS I will not titrate clozaril as timeline in relationship to his seizures has not been established. Patient aware that theoretically any antipsychotic can alter seizure threshold but currently medically necessary Risk Factors Assessment Do You Have Access To A Gun?: No Interval History Identifying Information 35 yo male with schizophrenia was a 201 admission to the [facility] prior to having a seizure and transport to [facility] for treatment, COVID + Chief Complaint "[]". Review of Systems Notes patient denies cough, N/V, GARCIA, muscle stiffness. Telehealth Telehealth Options: Telephone only For the duration of the visit, provider was performing the assessment from: The same facility as the patient After establishing a telemedicine visit, patient was: Patient was verified with two unique identifiers, Patient/authorized rep acknowledged consent and understanding and Gave permission to continue telehealth session Total Time Spent (minutes): 15 Subjective Subjective Patient was seen & assessed and interval progress reviewed with liaison and Dr. Hanna. Patient was sedated earlier this am (probably related to prn Haldol/increase yesterday). The patient reports he is feeling well today with total resolution of his hallucinations. He contracts for safety in the hospital. He denies any SI/HI. Physical Exam Psychiatric patient is alert and cooperative. much less anxious than yesterday. He is concrete but organized in his thought processes and does not express any delusions. He continues to deny SI/HI/gonzalez. Vital Signs (Past 24 Hours) Last Vital Signs Temp 36.8 C 12/18/20 11:48 Pulse 98 H 12/18/20 11:48 Resp 16 12/18/20 11:48 BP 98/64 L 12/18/20 11:48 Pulse Ox 97 12/18/20 11:48 Results & Data ([facility]) Laboratory Results Laboratory Results - last 24 hr 12/18/20 12/18/20 09:26 09:26 WBC 5.88 RBC 5.04 Hgb 15.0 Hct 43.5 MCV 86.3 MCH 29.8 MCHC 34.5 RDW Std Deviation 45.7 RDW Coeff of Jessica 14.6 H Plt Count 351 MPV 9.1 Sodium 146 H Potassium 3.7 Chloride 114 H Carbon Dioxide 25 Anion Gap 7.0 BUN 9 Creatinine 0.86 Est Cr Clr Drug Dosing 123.1 Est GFR ( Amer) 131.1 Est GFR (Non-Af Amer) 113.1 BUN/Creatinine Ratio 11.0 Glucose 90 Calcium 9.0 Current Inpatient Medications Current Inpatient Medications: Current Inpatient Medications Acetaminophen (Acetaminophen 325 Mg Tab) 650 mg PO Q4H PRN PRN Reason: Pain or Fever Stop: 01/15/21 02:20 Last Admin: 12/16/20 20:20 Dose: 650 mg Documented by: Benztropine Mesylate (Benztropine Mesylate 1 Mg Tab) 1 mg PO Q6 PRN PRN Reason: Muscle Spasm Stop: 01/16/21 14:23 Clozapine (Clozapine 100 Mg Tab) 200 mg PO HS [facility] Stop: 01/15/21 20:59 Last Admin: 12/17/20 21:33 Dose: 200 mg Documented by: Divalproex Sodium (Divalproex Delay Release 500 Mg Tab) 500 mg PO BID [facility] Stop: 01/15/21 09:29 Last Admin: 12/18/20 09:30 Dose: 500 mg Documented by: Enoxaparin Sodium (Enoxaparin Inj 30 Mg/0.3 Ml Syr) 30 mg SQ QAM [facility] Stop: 01/15/21 08:59 Last Admin: 12/18/20 09:29 Dose: 30 mg Documented by: Haloperidol (Haloperidol 5 Mg Tab) 5 mg PO Q6 PRN PRN Reason: Anxiety/Agitation Stop: 01/15/21 17:22 Last Admin: 12/17/20 12:49 Dose: 5 mg Documented by: Haloperidol (Haloperidol 5 Mg Tab) 5 mg PO BID [facility] Stop: 01/16/21 14:24 Last Admin: 12/18/20 09:29 Dose: Not Given Documented by: Lorazepam (Ativan) 1 mg in 2 mls @ 0.5 mls/min IV Q10M PRN PRN Reason: seizures Stop: 01/14/21 22:39 Promethazine HCl 6.25 mg/ (Sodium Chloride) 50.25 mls @ 201 mls/hr IV Q6H PRN PRN Reason: Nausea And Vomiting Stop: 01/15/21 02:20 Last Infusion: 12/16/20 17:46 Dose: Infused Documented by: Levalbuterol HCl (Levalbuterol Tartrate 15 Gm Hfa.Aer.Ad) 2 puffs INH Q4H PRN PRN Reason: sob/wheeze Stop: 01/15/21 02:20 Lorazepam (Lorazepam 1 Mg Tab) 1 mg PO Q6H PRN PRN Reason: Anxiety Stop: 01/15/21 02:48 Last Admin: 12/17/20 21:34 Dose: 1 mg Documented by: Zonisamide (Zonisamide 100 Mg Capsule) 500 mg PO [facility] Stop: 01/15/21 20:59 Last Admin: 12/17/20 21:32 Dose: 500 mg Documented by:
--- NOTE | 2020-12-18 16:35 | Hospitalist Progress Note ---
Date of Service December 18, 2020 Assessment & Plan (1) Seizure: Plan: Recent psychiatric inpatient admission to the [facility] where his clozapine was increased. Possibly the cause of his breakthrough seizure. This has been decreased and he has been evaluated by neurology. He was initially loaded with Keppra in the ER but this was stopped so to avoid additional agitation. This was stopped and depakote was increased to 500mg BID. Cont home zonisamide without changes. Follow with [facility] Neurology records (Dr. Rivera) as outpatient Needs Depakote level and ammonia level drawn on a weekly basis upon discharge Currently doing well and appears stable on current therapy. (2) Schizophrenia: Plan: Recently inpatient at the [facility]. Per psychiatry use clozapine has been decreased. Hallucinations denies are not an issue at this time and psychiatry feels better is no concern or threat of suicide or homicidal ideations. Wound the wound monitoring has been discontinued. Patient appears in good spirits. He will continue on Haldol scheduled and as needed as needed for now with adjustments per psychiatry. (3) COVID-19: Plan: No symptoms and patient is not hypoxic. Not requiring treatment at this time. Transient hypoxia on day of admission, however, this resolved and he has been doing well since then. Will remain on respiratory isolation until 12/21, Wednesday morning. At this time he can come off respiratory isolation and transition back to [facility]. This was discussed with Dr. Sarmiento from psychiatry. (4) Tobacco use disorder: Plan: Not currently on nicotine replacement. Counseled to quit. (5) DVT prophylaxis: Plan: Lovenox Full Code Dispo-to med/surg [facility] Hospital[facility] Admission and Anticipated Discharge Date Admission Date: December 16, 2020 Subjective 35-year-old schizophrenic male presented to the ER with breakthrough seizures during recent inpatient psychiatric admission at the [facility]. Multiple medication adjustments. Patient also Covid positive but on room air. Denies any symptoms at this time including no pain, cough, fevers, chills, diarrhea. He is tolerating p.o. He feels well on his recent medication changes. No breakthrough seizures since he presented in the ER. Review of Systems Review of Systems: At least ten systems were reviewed and negative except as indicated in HPI above. Physical Exam Physical Exam: CONSTITUTIONAL: WNWD, vitals as above, generally well- appearing, NAD EYES: normal conjunctivae, no scleral icterus ENT: external ear and nose normal, MMM NECK: trachea midline RESPIRATORY: clear to auscultation bilaterally, no crackles, rales or wheezes, normal respiratory effort CARDIOVASCULAR: regular rate and rhythm, S1 and 2 heard without murmurs, gallops or rubs, no JVD, no peripheral edema CHEST: inspection of chest was normal (+pacemaker, +port) GASTROINTESTINAL: soft, nontender, ND, upon palpation patient states "I don't like to be touched"-exam stopped. MUSCULOSKELETAL: moves all extremities with ease, head is normocephalic and atraumatic SKIN: warm and dry NEUROLOGIC: CN 2-12 grossly intact, normal cognition, normal speech, no tremor PSYCHIATRIC: alert cooperative and oriented to person, place and time. Results & Data Results & Data ([facility]) Vital Signs (Past 12 Hours) Vital Signs Temp Pulse Pulse Pulse Resp BP Pulse Ox 12/18/20 16:05 37.0 C 108 H 24 109/72 98 12/18/20 11:48 36.8 C 98 H 16 98/64 L 97 12/18/20 08:30 90 12/18/20 07:51 36.6 C 90 20 101/67 97 Laboratory Results Short CBC 12/18/20 Range/Units 09:26 WBC 5.88 (4.8-10.8) K/uL Hgb 15.0 (14.0-18.0) g/dL Hct 43.5 (42-52) % Plt Count 351 (130-400) K/uL BMP 12/18/20 09:26 Sodium 146 H Potassium 3.7 Chloride 114 H Carbon Dioxide 25 BUN 9 Creatinine 0.86 Glucose 90 Calcium 9.0 Medications Administered Current Inpatient Medications Acetaminophen (Acetaminophen 325 Mg Tab) 650 mg PO Q4H PRN PRN Reason: Pain or Fever Stop: 01/15/21 02:20 Last Admin: 12/16/20 20:20 Dose: 650 mg Documented by: Benztropine Mesylate (Benztropine Mesylate 1 Mg Tab) 1 mg PO Q6 PRN PRN Reason: Muscle Spasm Stop: 01/16/21 14:23 Clozapine (Clozapine 100 Mg Tab) 200 mg PO HS [facility] Stop: 01/15/21 20:59 Last Admin: 12/17/20 21:33 Dose: 200 mg Documented by: Divalproex Sodium (Divalproex Delay Release 500 Mg Tab) 500 mg PO BID [facility] Stop: 01/15/21 09:29 Last Admin: 12/18/20 09:30 Dose: 500 mg Documented by: Enoxaparin Sodium (Enoxaparin Inj 30 Mg/0.3 Ml Syr) 30 mg SQ QAM [facility] Stop: 01/15/21 08:59 Last Admin: 12/18/20 09:29 Dose: 30 mg Documented by: Haloperidol (Haloperidol 5 Mg Tab) 5 mg PO Q6 PRN PRN Reason: Anxiety/Agitation Stop: 01/15/21 17:22 Last Admin: 12/17/20 12:49 Dose: 5 mg Documented by: Haloperidol (Haloperidol 5 Mg Tab) 5 mg PO BID [facility] Stop: 01/16/21 14:24 Last Admin: 12/18/20 09:29 Dose: Not Given Documented by: Lorazepam (Ativan) 1 mg in 2 mls @ 0.5 mls/min IV Q10M PRN PRN Reason: seizures Stop: 01/14/21 22:39 Promethazine HCl 6.25 mg/ (Sodium Chloride) 50.25 mls @ 201 mls/hr IV Q6H PRN PRN Reason: Nausea And Vomiting Stop: 01/15/21 02:20 Last Infusion: 12/16/20 17:46 Dose: Infused Documented by: Levalbuterol HCl (Levalbuterol Tartrate 15 Gm Hfa.Aer.Ad) 2 puffs INH Q4H PRN PRN Reason: sob/wheeze Stop: 01/15/21 02:20 Lorazepam (Lorazepam 1 Mg Tab) 1 mg PO Q6H PRN PRN Reason: Anxiety Stop: 01/15/21 02:48 Last Admin: 12/17/20 21:34 Dose: 1 mg Documented by: Zonisamide (Zonisamide 100 Mg Capsule) 500 mg PO HS [facility] Stop: 01/15/21 20:59 Last Admin: 12/17/20 21:32 Dose: 500 mg Documented by:
[2020-12-18] MEDS: cloZAPine 100 MG TAB PO SCH (20:23)
[2020-12-18] MEDS: ZONISAMIDE 100 MG CAPSULE PO SCH (20:24)
--- NOTE | 2020-12-19 08:58 | Communication Note ---
Date of Service: December I have reviewed the current chart progress notes from psychiatry and internal medicine at this point appears the patient is stable hallucinations or better controlled on the current dose of Depakote in conjunction. He does have a modest elevation of ammonia which needs to be monitored. His neurologist may wish to change anticonvulsants at this becomes an issue or alternatively may want to simply place him on some lactulose if this pattern persists Plan is to do weekly Depakote and ammonia levels continue his current medications and transfer him back to the [facility] hopefully on Wednesday for ongoing psychiatric care Neurology will therefore officially sign off the case at the present time but can be reengage should he have breakthrough seizure Jeovany Mendez MD
[2020-12-19] MEDS: haloperidoL 5 MG TAB PO SCH ×2 (11:08→19:22)
[2020-12-19] MEDS: DIVALPROEX DELAY RELEASE 500 MG TAB PO SCH ×2 (11:09→19:22)
[2020-12-19] MEDS: ENOXAPARIN INJ 30 MG/0.3 ML SYR SQ SCH (11:10)
--- NOTE | 2020-12-19 13:44 | Communication Note ---
Date of Service: December 19, 2020 Interim progress reviewed. Patient remains cooperative. Essentially denying hallucinations at this time but does not feel stable to discharge home without completing his course of treatment at the [facility]. Tolerating current medication regimen. No additional recs at this time. Liaisons to continue routine rounds/phone check ins.
[2020-12-19] MEDS: LORazepam 1 MG TAB PO PRN (14:29)
[2020-12-19] MEDS: haloperidoL 5 MG TAB PO PRN (18:07)
[2020-12-19] MEDS: ZONISAMIDE 100 MG CAPSULE PO SCH (19:21)
[2020-12-19] MEDS: cloZAPine 100 MG TAB PO SCH (19:22)
--- NOTE | 2020-12-19 19:43 | Hospitalist Progress Note ---
Date of Service December 19, 2020 Assessment & Plan (1) Seizure: Plan: Recent psychiatric inpatient admission to the [facility] where his clozapine was increased. Possibly the cause of his breakthrough seizure. This has been decreased and he has been evaluated by neurology. He was initially loaded with Keppra in the ER but this was stopped so to avoid additional agitation. This was stopped and depakote was increased to 500mg BID. Cont home zonisamide without changes. Follow with [facility] Neurology records (Dr. Rivera) as outpatient Needs Depakote level and ammonia level drawn on a weekly basis upon discharge Currently doing well and appears stable on current therapy. (2) Schizophrenia: Plan: Recently inpatient at the [facility]. Per psychiatry use clozapine has been decreased. Hallucinations denies are not an issue at this time and psychiatry feels better is no concern or threat of suicide or homicidal ideations. One to one observation has been discontinued. Patient appears in good spirits. He will continue on Haldol scheduled and as needed as needed for now with adjustments per psychiatry. (3) COVID-19: Plan: No symptoms and patient is not hypoxic. Not requiring treatment at this time. Transient hypoxia on day of admission, however, this resolved and he has been doing well since then. Will remain on respiratory isolation until 12/21, Wednesday morning. At this time he can come off respiratory isolation and transition back to [facility]. This was discussed with Dr. Sarmiento from psychiatry. (4) Tobacco use disorder: Plan: Not currently on nicotine replacement. Counseled to quit. (5) DVT prophylaxis: Plan: Lovenox Full Code Dispo-to med/surg [facility] Admission and Anticipated Discharge Date Admission Date: December 16, 2020 Subjective 35-year-old schizophrenic male presented to the ER with breakthrough seizures during recent inpatient psychiatric admission at the [facility]. Multiple medication adjustments. Patient also Covid positive but on room air. Denies any symptoms at this time including no pain, cough, fevers, chills, diarrhea. He is tolerating p.o. He feels well on his recent medication changes. No breakthrough seizures since he presented in the ER. Review of Systems Review of Systems: At least ten systems were reviewed and negative except as indicated in HPI above. Physical Exam Physical Exam: CONSTITUTIONAL: WNWD, vitals as above, generally well- appearing, NAD EYES: normal conjunctivae, no scleral icterus ENT: external ear and nose normal, MMM NECK: trachea midline RESPIRATORY: clear to auscultation bilaterally, no crackles, rales or wheezes, normal respiratory effort CARDIOVASCULAR: regular rate and rhythm, S1 and 2 heard without murmurs, gallops or rubs, no JVD, no peripheral edema MUSCULOSKELETAL: moves all extremities with ease, head is normocephalic and atraumatic SKIN: warm and dry NEUROLOGIC: CN 2-12 grossly intact, normal cognition, normal speech, no tremor PSYCHIATRIC: alert cooperative and oriented to person, place and time. Results & Data Results & Data ([facility]) Vital Signs (Past 12 Hours) Vital Signs Temp Pulse Resp BP BP Pulse Ox 12/19/20 15:43 36.8 C 100 H 16 134/83 98 12/19/20 08:17 36.6 C 87 20 120/79 97 Medications Administered Current Inpatient Medications Acetaminophen (Acetaminophen 325 Mg Tab) 650 mg PO Q4H PRN PRN Reason: Pain or Fever Stop: 01/15/21 02:20 Last Admin: 12/16/20 20:20 Dose: 650 mg Documented by: Benztropine Mesylate (Benztropine Mesylate 1 Mg Tab) 1 mg PO Q6 PRN PRN Reason: Muscle Spasm Stop: 01/16/21 14:23 Clozapine (Clozapine 100 Mg Tab) 200 mg PO HS [facility] Stop: 01/15/21 20:59 Last Admin: 12/19/20 19:22 Dose: 200 mg Documented by: Divalproex Sodium (Divalproex Delay Release 500 Mg Tab) 500 mg PO BID [facility] Stop: 01/17/21 20:59 Last Admin: 12/19/20 19:22 Dose: 500 mg Documented by: Enoxaparin Sodium (Enoxaparin Inj 30 Mg/0.3 Ml Syr) 30 mg SQ QAM [facility] Stop: 01/15/21 08:59 Last Admin: 12/19/20 11:10 Dose: 30 mg Documented by: Haloperidol (Haloperidol 5 Mg Tab) 5 mg PO Q6 PRN PRN Reason: Anxiety/Agitation Stop: 01/15/21 17:22 Last Admin: 12/19/20 18:07 Dose: 5 mg Documented by: Haloperidol (Haloperidol 5 Mg Tab) 5 mg PO BID [facility] Stop: 01/16/21 14:24 Last Admin: 12/19/20 19:22 Dose: 5 mg Documented by: Lorazepam (Ativan) 1 mg in 2 mls @ 0.5 mls/min IV Q10M PRN PRN Reason: seizures Stop: 01/14/21 22:39 Promethazine HCl 6.25 mg/ (Sodium Chloride) 50.25 mls @ 201 mls/hr IV Q6H PRN PRN Reason: Nausea And Vomiting Stop: 01/15/21 02:20 Last Infusion: 12/16/20 17:46 Dose: Infused Documented by: Levalbuterol HCl (Levalbuterol Tartrate 15 Gm Hfa.Aer.Ad) 2 puffs INH Q4H PRN PRN Reason: sob/wheeze Stop: 01/15/21 02:20 Lorazepam (Lorazepam 1 Mg Tab) 1 mg PO Q6H PRN PRN Reason: Anxiety Stop: 01/15/21 02:48 Last Admin: 12/19/20 14:29 Dose: 1 mg Documented by: Zonisamide (Zonisamide 100 Mg Capsule) 500 mg PO HS [facility] Stop: 01/15/21 20:59 Last Admin: 12/19/20 19:21 Dose: 500 mg Documented by:
[2020-12-20] MEDS: DIVALPROEX DELAY RELEASE 500 MG TAB PO SCH ×2 (09:04→20:00)
[2020-12-20] MEDS: haloperidoL 5 MG TAB PO SCH ×2 (09:04→15:56)
[2020-12-20] MEDS: ENOXAPARIN INJ 30 MG/0.3 ML SYR SQ SCH (09:04)
[2020-12-20 11:17] LABS: Hemoglobin 16.3 g/dL (14.0-18.0); Mean Corpuscular Hemoglobin 29.6 pg (25-34); Mean Corpuscular Volume 87.3 fL (80-100); Mean Platelet Volume 9.2 fL (7.4-10.4); Platelet Count 360 K/uL (130-400); RDW Coefficient of Variation 14.9 % (11.5-14.5); RDW Standard Deviation 47.2 fL (36.4-46.3); White Blood Count 7.83 K/uL (4.8-10.8)
[2020-12-20 11:39] LABS: BUN Creatinine Ratio 10.6 (10-20); Calcium 9.6 mg/dl (8.5-10.1); Creatinine Clr Calc Pharmacy 98.9 ml/min; Est GFR (African American) 104.4 ml/min; Est GFR (Non-African American) 90.1 ml/min
--- NOTE | 2020-12-20 14:27 | Psychiatric Progress Note ---
Date of Service December 20, 2020 Impression / Recommendations Impression 35 yo male with chronic psychosis admit COVID + [place] [facility] (1) Schizophrenia: shift Haldol BID to am and early pm, keep Clozaril at hs. patient will require inpatient hospitalization on a [address] [facility] his course of inpatient care when medically cleared. Risk Factors Assessment Do You Have Access To A Gun?: No Interval History Identifying Information 35 yo male with schizophrenia was a [address] [facility] to having a seizure and transport to [facility] for treatment, COVID + Chief Complaint "I get the voices later in the day". Review of Systems Notes patient denies physical complaints across 10 body systems. Telehealth Telehealth Options: Telephone only For the duration of the visit, provider was performing the assessment from: The same facility as the patient After establishing a telemedicine visit, patient was: Patient was verified with two unique identifiers, Patient/authorized rep acknowledged consent and understanding and Gave permission to continue telehealth session Total Time Spent (minutes): 15 Subjective Subjective Patient was assessed. Interim progress reviewed. Has been cooperative on the medical floor but required PO Ativan yesterday early evening for auditory command gonzalez telling him to kill people and hurt self. He states he slept well and it hasn't been an issue this am. He did report "they were loud and I just couldn't deal with them". He denies wanting to harm himself or others but again voices need for ongoing inpatient hospitalization. Physical Exam Psychiatric alert, cooperative, speech baseline for patient, thoughts concrete but organized. Did not express any delusions. States his mood is "holding in there". No hallucinations currently as engaged in conversation. Denies SI/HI. Insight and judgement limited. Vital Signs (Past 24 Hours) Last Vital Signs Temp 36.8 C 12/20/20 08:01 Pulse 82 12/20/20 08:01 Resp 16 12/20/20 08:01 BP 100/67 12/20/20 08:01 Pulse Ox 97 12/20/20 08:01 Results & Data ([facility]) Laboratory Results Laboratory Results - last 24 hr 12/20/20 12/20/20 12/20/20 11:04 11:04 11:04 WBC 7.83 RBC 5.50 Hgb 16.3 Hct 48.0 MCV 87.3 MCH 29.6 MCHC 34.0 RDW Std Deviation 47.2 H RDW Coeff of Jessica 14.9 H Plt Count 360 MPV 9.2 Sodium 140 Potassium 4.0 Chloride 110 H Carbon Dioxide 27 Anion Gap 3.0 BUN 11 Creatinine 1.07 Est Cr Clr Drug Dosing 98.9 Est GFR ( Amer) 104.4 Est GFR (Non-Af Amer) 90.1 BUN/Creatinine Ratio 10.6 Glucose 121 H Calcium 9.6 Ammonia 30.0 Valproic Acid 12/20/20 11:04 WBC RBC Hgb Hct MCV MCH MCHC RDW Std Deviation RDW Coeff of Jessica Plt Count MPV Sodium Potassium Chloride Carbon Dioxide Anion Gap BUN Creatinine Est Cr Clr Drug Dosing Est GFR ( Amer) Est GFR (Non-Af Amer) BUN/Creatinine Ratio Glucose Calcium Ammonia Valproic Acid 63 Current Inpatient Medications Current Inpatient Medications: Current Inpatient Medications Acetaminophen (Acetaminophen 325 Mg Tab) 650 mg PO Q4H PRN PRN Reason: Pain or Fever Stop: 01/15/21 02:20 Last Admin: 12/16/20 20:20 Dose: 650 mg Documented by: Benztropine Mesylate (Benztropine Mesylate 1 Mg Tab) 1 mg PO Q6 PRN PRN Reason: Muscle Spasm Stop: 01/16/21 14:23 Clozapine (Clozapine 100 Mg Tab) 200 mg PO HS [facility] Stop: 01/15/21 20:59 Last Admin: 12/19/20 19:22 Dose: 200 mg Documented by: Divalproex Sodium (Divalproex Delay Release 500 Mg Tab) 500 mg PO BID [facility] Stop: 01/17/21 20:59 Last Admin: 12/20/20 09:04 Dose: 500 mg Documented by: Enoxaparin Sodium (Enoxaparin Inj 30 Mg/0.3 Ml Syr) 30 mg SQ QAM [facility] Stop: 01/15/21 08:59 Last Admin: 12/20/20 09:04 Dose: 30 mg Documented by: Haloperidol (Haloperidol 5 Mg Tab) 5 mg PO Q6 PRN PRN Reason: Anxiety/Agitation Stop: 01/15/21 17:22 Last Admin: 12/19/20 18:07 Dose: 5 mg Documented by: Haloperidol (Haloperidol 5 Mg Tab) 5 mg PO BID [facility] Stop: 01/16/21 14:24 Last Admin: 12/20/20 09:04 Dose: 5 mg Documented by: Lorazepam (Ativan) 1 mg in 2 mls @ 0.5 mls/min IV Q10M PRN PRN Reason: seizures Stop: 01/14/21 22:39 Promethazine HCl 6.25 mg/ (Sodium Chloride) 50.25 mls @ 201 mls/hr IV Q6H PRN PRN Reason: Nausea And Vomiting Stop: 01/15/21 02:20 Last Infusion: 12/16/20 17:46 Dose: Infused Documented by: Levalbuterol HCl (Levalbuterol Tartrate 15 Gm Hfa.Aer.Ad) 2 puffs INH Q4H PRN PRN Reason: sob/wheeze Stop: 01/15/21 02:20 Lorazepam (Lorazepam 1 Mg Tab) 1 mg PO Q6H PRN PRN Reason: Anxiety Stop: 01/15/21 02:48 Last Admin: 12/19/20 14:29 Dose: 1 mg Documented by: Zonisamide (Zonisamide 100 Mg Capsule) 500 mg PO HS [facility] Stop: 01/15/21 20:59 Last Admin: 12/19/20 19:21 Dose: 500 mg Documented by:
[2020-12-20] MEDS: LORazepam 1 MG TAB PO PRN (16:52)
--- NOTE | 2020-12-20 19:03 | Hospitalist Progress Note ---
Date of Service December 20, 2020 Assessment & Plan (1) Seizure: Plan: Recent psychiatric inpatient admission to the [facility] where his clozapine was increased. Possibly the cause of his breakthrough seizure. This has been decreased and he has been evaluated by neurology. He was initially loaded with Keppra in the ER but this was stopped so to avoid additional agitation. This was stopped and depakote was increased to 500mg BID. Cont home zonisamide without changes. Follow with [facility] Neurology records (Dr. Rivera) as outpatient Needs Depakote level and ammonia level drawn on a weekly basis upon discharge, levels this am were within normal limits Currently doing well and appears stable on current therapy. (2) Schizophrenia: Plan: Recently inpatient at the [facility]. Per psychiatry use clozapine has been decreased. Hallucinations are back again and he is distressed by this. One to one observation recommended. (3) COVID-19: Plan: No symptoms and patient is not hypoxic. Not requiring treatment at this time. Transient hypoxia on day of admission, however, this resolved and he has been doing well since then. Will remain on respiratory isolation until 12/21, Wednesday morning. At this time he can come off respiratory isolation and transition back to [facility]. This was discussed with Dr. Sarmiento from psychiatry. (4) Tobacco use disorder: Plan: Not currently on nicotine replacement. Counseled to quit. (5) DVT prophylaxis: Plan: Lovenox Full Code Dispo-to med/surg DO [facility] Hospitalist Admission and Anticipated Discharge Date Admission Date: December 16, 2020 Subjective 35-year-old schizophrenic male presented to the ER with breakthrough seizures during recent inpatient psychiatric admission at the [facility]. Multiple medication adjustments. Patient also Covid positive but on room air. Denies any symptoms at this time including no pain, cough, fevers, chills, diarrhea. He is tolerating p.o. He is very emotional tonight. He reports hearing voices and seeing shadows. The voices are telling him to hurt himself and others. This has occurred in the past for him, but he is very affected and reports feeling very scared. States he typically calls his friend Isma, who is not picking up the phone. This is reportedly who he lives with. Psych liaison was just in the room. Called her and encouraged reporting this to psychiatrist supervisor front. When she did, he recommended one to one obs for now. Cont current doses of clozapine and haldol Review of Systems Review of Systems: At least ten systems were reviewed and negative except as indicated in HPI above. Physical Exam Physical Exam: CONSTITUTIONAL: WNWD, vitals as above, generally well- appearing, almost tearful EYES: normal conjunctivae, no scleral icterus ENT: external ear and nose normal, MMM NECK: trachea midline RESPIRATORY: clear to auscultation bilaterally, no crackles, rales or wheezes, normal respiratory effort CARDIOVASCULAR: regular rate and rhythm, S1 and 2 heard without murmurs, gallops or rubs, no JVD, no peripheral edema MUSCULOSKELETAL: moves all extremities with ease, head is normocephalic and atraumatic SKIN: warm and dry NEUROLOGIC: CN 2-12 grossly intact, normal cognition, normal speech, no tremor PSYCHIATRIC: alert cooperative and oriented to person, place and time. Results & Data Results & Data ([facility]) Vital Signs (Past 12 Hours) Vital Signs Temp Pulse Resp BP BP Pulse Ox 12/20/20 15:40 36.7 C 104 H 16 127/80 97 12/20/20 08:01 36.8 C 82 16 100/67 97 Laboratory Results Short CBC 12/20/20 Range/Units 11:04 WBC 7.83 (4.8-10.8) K/uL Hgb 16.3 (14.0-18.0) g/dL Hct 48.0 (42-52) % Plt Count 360 (130-400) K/uL BMP 12/20/20 11:04 Sodium 140 Potassium 4.0 Chloride 110 H Carbon Dioxide 27 BUN 11 Creatinine 1.07 Glucose 121 H Calcium 9.6 Medications Administered Current Inpatient Medications Acetaminophen (Acetaminophen 325 Mg Tab) 650 mg PO Q4H PRN PRN Reason: Pain or Fever Stop: 01/15/21 02:20 Last Admin: 12/16/20 20:20 Dose: 650 mg Documented by: Benztropine Mesylate (Benztropine Mesylate 1 Mg Tab) 1 mg PO Q6 PRN PRN Reason: Muscle Spasm Stop: 01/16/21 14:23 Clozapine (Clozapine 100 Mg Tab) 200 mg PO HS TRISTIAN Stop: 01/15/21 20:59 Last Admin: 12/19/20 19:22 Dose: 200 mg Documented by: Divalproex Sodium (Divalproex Delay Release 500 Mg Tab) 500 mg PO BID [facility] Stop: 01/17/21 20:59 Last Admin: 12/20/20 09:04 Dose: 500 mg Documented by: Enoxaparin Sodium (Enoxaparin Inj 30 Mg/0.3 Ml Syr) 30 mg SQ QAM [facility] Stop: 01/15/21 08:59 Last Admin: 12/20/20 09:04 Dose: 30 mg Documented by: Haloperidol (Haloperidol 5 Mg Tab) 5 mg PO Q6 PRN PRN Reason: Anxiety/Agitation Stop: 01/15/21 17:22 Last Admin: 12/19/20 18:07 Dose: 5 mg Documented by: Haloperidol (Haloperidol 5 Mg Tab) 5 mg PO BID17 [facility] Stop: 01/19/21 16:59 Last Admin: 12/20/20 15:56 Dose: 5 mg Documented by: Lorazepam (Ativan) 1 mg in 2 mls @ 0.5 mls/min IV Q10M PRN PRN Reason: seizures Stop: 01/14/21 22:39 Promethazine HCl 6.25 mg/ (Sodium Chloride) 50.25 mls @ 201 mls/hr IV Q6H PRN PRN Reason: Nausea And Vomiting Stop: 01/15/21 02:20 Last Infusion: 12/16/20 17:46 Dose: Infused Documented by: Levalbuterol HCl (Levalbuterol Tartrate 15 Gm Hfa.Aer.Ad) 2 puffs INH Q4H PRN PRN Reason: sob/wheeze Stop: 01/15/21 02:20 Lorazepam (Lorazepam 1 Mg Tab) 1 mg PO Q6H PRN PRN Reason: Anxiety Stop: 01/15/21 02:48 Last Admin: 12/20/20 16:52 Dose: 1 mg Documented by: Zonisamide (Zonisamide 100 Mg Capsule) 500 mg PO HS [facility] Stop: 01/15/21 20:59 Last Admin: 12/19/20 19:21 Dose: 500 mg Documented by:
[2020-12-20] MEDS: cloZAPine 100 MG TAB PO SCH (20:00)
[2020-12-20] MEDS: haloperidoL 5 MG TAB PO PRN (20:00)
[2020-12-20] MEDS: ZONISAMIDE 100 MG CAPSULE PO SCH (20:33)
[2020-12-21] MEDS: PROMETHAZINE HCL 6.25 MG in SODIUM CHLORIDE 0.9% 50 ML IV PRN (01:08)
[2020-12-21] MEDS: ENOXAPARIN INJ 30 MG/0.3 ML SYR SQ SCH (09:12)
[2020-12-21] MEDS: haloperidoL 5 MG TAB PO SCH (09:12)
[2020-12-21] MEDS: DIVALPROEX DELAY RELEASE 500 MG TAB PO SCH (09:12)
--- NOTE | 2020-12-21 10:54 | Discharge Summary ---
Date of Service December 21, 2020 Admission HPI Per Admitting Provider History obtained from patient, family, and records. Limited history from patient secondary to confusion. Medical history significant for schizophrenia, mood disorder, seizure disorder, hypertension, ongoing tobacco abuse. Patient has been admitted at the [facility] for schizophrenia/mood disorder since November 29, 2020. [facility] to fix patient's seizure medication regimen because outpatient providers from [place] 'messed up' patient's meds leading to a breakthrough seizure 3 months ago after years of good control as per patient's guardian. 2 more weeks of stay contemplated at the [facility] as per guardian. Last week, patient noted to have a positive Covid test 19. Patient unable to provide account of symptoms of illness. Witnessed generalized tonic-clonic seizures about 2 to 3 minutes at psychiatric facility last night. Patient brought to the ER for evaluation. Patient about to be discharged back to psychiatric facility when he had another breakthrough seizure lasting about 2 minutes.. Subsequent hypoxemia noted. IV Keppra administered at the ER. Patient 'does not know' if he has headache, chest pain, S OB, cough, abdominal pain symptoms. Medical History as above Surgical History : Could not be obtained Family History : Could not be obtained Personal/Social history : Ongoing tobacco abuse, no EtOH intake, lives with his guardian in [place] Admission Exam Per Admitting Provider GENERAL: Comfortable, wane, lethargic, no respiratory distress SKIN: Normal color, warm HEENT: [place] palpebral conjunctivae, no ptosis, dry buccal mucosa, O2 mask in place NECK : Supple, no tenderness CHEST : Decreased breath sounds, no tenderness HEART : RRR, no obvious murmurs ABDOMEN: Some distention, nontender EXTREMITIES : No LE swelling/tenderness, no other conspicuous deformities noted NEUROLOGIC : Lethargic, no facial asymmetry, no other gross focality Principal Diagnosis seizure schizophrenia COVID-19 infection tobacco use disorder Discharge Exam CONSTITUTIONAL: WNWD, vitals as above, generally well-appearing, almost tearful EYES: normal conjunctivae, no scleral icterus ENT: external ear and nose normal, MMM NECK: trachea midline RESPIRATORY: clear to auscultation bilaterally, no crackles, rales or wheezes, normal respiratory effort CARDIOVASCULAR: regular rate and rhythm, S1 and 2 heard without murmurs, gall ops or rubs, no JVD, no peripheral edema MUSCULOSKELETAL: moves all extremities with ease, head is normocephalic and atraumatic SKIN: warm and dry NEUROLOGIC: CN 2-12 grossly intact, normal cognition, normal speech, no tremor PSYCHIATRIC: alert cooperative and oriented to person, place and time. Discharge Data Allergies Allergy/AdvReac Type Severity Reaction Status Date / Time No Known Allergies Allergy Unverified 12/15/20 23:08 Consultations 12/15/20 22:23 ED Decision to Admit Stat 12/16/20 02:21 Consult Neurology Routine 12/16/20 08:05 Consult Health Information Management Routine 12/16/20 10:30 Consult Psychiatry Routine Ordered Studies Laboratory Results WBC 7.83 K/uL (4.8-10.8) 12/20/20 11:04 RBC 5.50 M/uL (4.7-6.1) 12/20/20 11:04 Hgb 16.3 g/dL (14.0-18.0) 12/20/20 11:04 Hct 48.0 % (42-52) 12/20/20 11:04 MCV 87.3 fL (80-100) 12/20/20 11:04 MCH 29.6 pg (25-34) 12/20/20 11:04 MCHC 34.0 g/dL (32-36) 12/20/20 11:04 RDW Std Deviation 47.2 fL (36.4-46.3) H 12/20/20 11:04 RDW Coeff of Jessica 14.9 % (11.5-14.5) H 12/20/20 11:04 Plt Count 360 K/uL (130-400) 12/20/20 11:04 MPV 9.2 fL (7.4-10.4) 12/20/20 11:04 Immature Gran % (Auto) 0.9 % 12/16/20 05:54 Neut % (Auto) 55.8 % 12/16/20 05:54 Lymph % (Auto) 29.2 % 12/16/20 05:54 [place] % (Auto) 12.9 % 12/16/20 05:54 Eos % (Auto) 1.1 % 12/16/20 05:54 Baso % (Auto) 0.1 % 12/16/20 05:54 Neut # (Auto) 4.15 K/uL (1.4-6.5) 12/16/20 05:54 Lymph # (Auto) 2.17 K/uL (1.2-3.4) 12/16/20 05:54 [place] # (Auto) 0.96 K/uL (0.11-0.59) H 12/16/20 05:54 Eos # (Auto) 0.08 K/uL (0-0.5) 12/16/20 05:54 Baso # (Auto) 0.01 K/uL (0-0.2) 12/16/20 05:54 Immature Gran # (Auto) 0.07 K/uL (0.00-0.02) H 12/16/20 05:54 APTT 25.9 Seconds (21.0-31.0) 12/15/20 18:36 PTT Ratio 1.0 12/15/20 18:36 ABG pH 7.42 (7.35-7.45) 12/16/20 00:10 ABG pCO2 35 mmHg (35-46) 12/16/20 00:10 ABG pO2 257 mmHg (80-95) H 12/16/20 00:10 ABG HCO3 22 mmol/L (19-24) 12/16/20 00:10 ABG O2 Saturation 99.7 % (90-95) H 12/16/20 00:10 ABG Base Excess -1.4 mEq/L (-9-1.8) 12/16/20 00:10 Antonio Test Pos (Pos) 12/16/20 00:10 Oxygen Given RA 12/16/20 00:10 Sodium 140 mmol/L (136-145) 12/20/20 11:04 Potassium 4.0 mmol/L (3.5-5.1) 12/20/20 11:04 Chloride 110 mmol/L (98-107) H 12/20/20 11:04 Carbon Dioxide 27 mmol/L (21-32) 12/20/20 11:04 Anion Gap 3.0 (3-11) 12/20/20 11:04 BUN 11 mg/dl (7-18) 12/20/20 11:04 Creatinine 1.07 mg/dl (0.6-1.4) 12/20/20 11:04 Est Cr Clr Drug Dosing 98.9 ml/min 12/20/20 11:04 Est GFR ( Amer) 104.4 ml/min 12/20/20 11:04 Est GFR (Non-Af Amer) 90.1 ml/min 12/20/20 11:04 BUN/Creatinine Ratio 10.6 (10-20) 12/20/20 11:04 Glucose 121 mg/dl (70-99) H 12/20/20 11:04 Calcium 9.6 mg/dl (8.5-10.1) 12/20/20 11:04 Magnesium 2.5 mg/dl (1.8-2.4) H 12/17/20 07:30 Total Bilirubin 0.4 mg/dl (0.2-1) 12/16/20 05:54 AST 4 U/L (15-37) L 12/16/20 05:54 ALT 11 U/L (12-78) L 12/16/20 05:54 Alkaline Phosphatase 67 U/L (45-117) 12/16/20 05:54 Ammonia 30.0 umol/L (11-32) 12/20/20 11:04 Total Creatine Kinase U/L (39-308) 12/15/20 18:35 Troponin I < 0.015 ng/ml (0-0.045) 12/16/20 00:10 Total Protein 6.6 gm/dl (6.4-8.2) 12/16/20 05:54 Albumin 3.0 gm/dl (3.4-5.0) L 12/16/20 05:54 Globulin 3.6 gm/dl (2.5-4.0) 12/16/20 05:54 Albumin/Globulin Ratio 0.8 (0.9-2) L 12/16/20 05:54 Procalcitonin < 0.05 ng/ml (0-0.5) 12/17/20 07:30 Specimen Hemolysis 12/16/20 00:10 Nasal Screen MRSA (PCR) Negative (Negative) 12/16/20 06:46 Valproic Acid 63 mcg/ml (50-100) 12/20/20 11:04 COVID-19 Eval Order Covid19 at [facility] 12/15/20 22:51 SARS-CoV-2 (PCR) POSITIVE (Negative) A* 12/15/20 22:[address] 12/15/20 22:23 CT head/brain wo con CLINICAL HISTORY: 35 years-old Male with sz. Acute seizure like activity TECHNIQUE: Multiple axial CT images of the head were obtained without contrast. A dose lowering technique was utilized adhering to the principles of ALARA. CT DOSE: 614.27 mGy.cm COMPARISON: None. FINDINGS: No acute intracranial hemorrhage, midline shift, intracranial mass, hydrocephalus, territorial ischemia or abnormal extra-axial collection. The calvarium is intact. Mastoid air cells are clear. Minimal mucosal thickening the right frontal and maxillary sinuses. IMPRESSION: No acute intracranial abnormality. ACT 112: Negative or not required by law. The above report was generated using voice recognition software. It may contain grammatical, syntax or spelling errors. Electronically signed by: Kamari Jarrett M.D. 12/16/2020 6:34 AM Chest X-Ray 12/15/20 22:47 XR chest 1V portable HISTORY: Hypoxia. Seizure. COMPARISON: Chest 12/15/2020. FINDINGS: No pneumothorax. No pleural effusions. The heart is normal in size. There are low lung volumes. Left basilar linear densities are noted. The right lung is clear. No evidence for pulmonary edema. IMPRESSION: A few left basilar linear densities which favor subsegmental atelectasis. A pneumonia could also have a similar appearance in the appropriate clinical setting. ACT 112: Negative or not required by law. Electronically signed by: Ivan Mccartney M.D. 12/16/2020 7:42 AM Hospital Course (1) Seizure: Recent psychiatric inpatient admission to the [facility] where his clozapine was increased. Possibly the cause of his breakthrough seizure. This has been decreased and he has been evaluated by neurology. He was initially loaded with Keppra in the ER but this was stopped so to avoid additional agitation. This was stopped and depakote was increased to 500mg BID. Cont home zonisamide without changes. Follow with [facility] Neurology records (Dr. Rivera) as outpatient Needs Depakote level and ammonia level drawn on a weekly basis upon discharge, levels this am were within normal limits Currently doing well and appears stable on current therapy. (2) Schizophrenia: Recently inpatient at the [facility]. Per psychiatry use clozapine has been decreased. Hallucinations are back again and he is distressed by this. One to one observation recommended. (3) COVID-19: No symptoms and patient is not hypoxic. Not requiring treatment at this time. Transient hypoxia on day of admission, however, this resolved and he has been doing well since then. Will remain on respiratory isolation until 12/21, Wednesday morning. At this time he can come off respiratory isolation and transition back to [facility]. This was discussed with Dr. Sarmiento from psychiatry. (4) Tobacco use disorder: Not currently on nicotine replacement. Counseled to quit. Total Time Total Time Spent Total Time Spent (In Minutes): 60 Discharge Plan Discharge Items Patient Disposition: Transfer Behavioral Health Fac Reason For Visit: RESP FAILURE, COVID Discharge Diagnosis: seizure schizophrenia COVID-19 infection tobacco use disorder Condition on Discharge: Good Activity: Resume your previous activity Non-emergency contact: Primary Care Provider Call non-emergency contact if: you have any medication questions, your symptoms worsen, your pain is not controlled, your pain is worsening, your pain is unusual for you, your pain is concerning for you and you have a fever Follow-up/Referrals: Karo Wood [Primary Care Provider] - Diet: Regular Addtl Attending Provider Instructions: Please take all medications as recommended on discharge list below. Please follow-up with your primary care physician within 1-2 weeks of discharge from the hospital. This will be to ensure you are still doing well after hospi talization from covid-19 infection and seizures. Please follow-up with your regular neurologist to update them on the medication changes and to evaluate you after this breakthrough seizure. You will need weekly levels of ammonia and depakote with adjustments to your medications as needed. You are being discharged back to the [facility] for continued care of your underlying hallucinations. It was a pleasure taking care of you! Please call if you have any questions or problems. You can reach a [facility] hospitalist on duty at [facility] 24 hours a day by calling [phone]. Take care of yourself. Yoli Hanna DO [facility] Hospitalist Pending Studies at Discharge: No Stand-Alone Forms: My [facility] Skilled Items DNR: No Lines: None Urinary Catheter: No Medications and DC Order Prescriptions: Continued acetaminophen [Tylenol] 325 mg Tablet 650 mg PO Q4 PRN (Reason: Pain) RF: 0 clozapine 100 mg Tablet 200 mg PO HS RF: 0 zonisamide 100 mg Capsule 500 mg PO HS RF: 0 magnesium hydroxide [Milk of Magnesia] 400 mg/5 mL Suspension 30 ml PO DAILY PRN (Reason: Constipation) RF: 0 lorazepam [Ativan] 1 mg Tablet 1 mg PO Q6 PRN (Reason: Anxiety) RF: 0 docusate sodium 100 mg Tablet 100 mg PO DAILY RF: 0 Changed divalproex [Depakote] 500 mg Tablet,Delayed Release (Dr/Ec) 500 mg PO BID Qty: 60 RF: 0 haloperidol 5 mg Tablet 5 mg PO BID Qty: 20 RF: 0 Discontinued divalproex [Depakote] 250 mg Tablet,Delayed Release (Dr/Ec) 250 mg PO QAM RF: 0 doxepin 25 mg Capsule 25 mg PO HS RF: 0 clozapine 25 mg Tablet 150 mg PO QAM RF: 0 hydroxyzine pamoate 25 mg Capsule 25 mg PO TID RF: 0 Haloperidol 2.5 Mg 7.5 mg PO HS RF: 0 Discharge Orders: Discharge Order (Routine); Ordered 12/21/20 Ordered By: Yoli Hanna Admission Data Admit Date/Time: 12/16/20 00:22 Attending Provider: Yoli Hanna Admit Provider: Trace Cardozo Primary Care Provider: Karo Wood Other Providers: Trace Cardozo ; Cassidy Albert ; Jeovany Mendez Kathleen ; Reymundo Muro ; Lexis Soto ; Charleen Sarmiento ; Maureen Alaniz ; Seth Gomes
[2020-12-21] MEDS: LORazepam 1 MG TAB PO PRN (13:55)
== END 2020-12-21 15:58 | DRG 100 ==
LOC: ED 16:52 → 2S 12-16 00:22 → SUATTDRO 12-16 00:22 → 2S 12-16 01:35 → 3W 12-18 16:58